=== PATIENT | male | born 1970 | race Caucasian/White ===

== ENCOUNTER 2017-11-23 16:42 | Emergency (ER) | payer MEDICAID ==
--- NOTE | 2017-11-23 16:52 | EDPHY ---
H & P Source: Patient Exam Limitations: No limitations - Medical/Surgical History Hx Asthma: No Hx Chronic Respiratory Disease: No Hx Diabetes: No Hx Cardiac Disease: No Hx Renal Disease: No Hx Cirrhosis: No Hx Alcoholism: No Hx HIV/AIDS: No Hx Splenectomy or Spleen Trauma: No Other PMH: Anxiety, RIGHT HIP ARTHRITIS, LEFT ACHILIES, BACK -DISKS, SLEEP PROBLEMS - Social History Smoking Status: Never smoked Time Seen by Provider: 11/23/17 16:47 HPI/ROS: CHIEF COMPLAINT: Suicidal thoughts, alcohol dependence HISTORY OF PRESENT ILLNESS: The patient presents the emergency department with complaints of suicidal thoughts in the setting of recent relapse from sobriety. The patient denies any specific ingestion. He reports that he is been intermittently using sertraline and trazodone. The patient has been receiving his care at [facility]. The patient denies any acute medical complaints. He has been having problems with his ex-. REVIEW OF SYSTEMS: A comprehensive 10 point review of systems is otherwise negative aside from elements mentioned in the history of present illness. (Juaquin Bravo) - Physical Exam Exam: General Appearance: Alert, no distress Eyes: Pupils equal and round no pallor or injection ENT, Mouth: Mucous membranes moist Respiratory: There are no retractions, lungs are clear to auscultation Cardiovascular: Regular rate and rhythm Gastrointestinal: Abdomen is soft and nontender, no masses, bowel sounds normal Neurological: A&O, normal motor function, normal sensory exam, normal cranial nerves Skin: Warm and dry, no rashes Musculoskeletal: Neck is supple nontender Extremities: symmetrical, full range of motion Psychiatric: Endorses symptoms of depression, suicidal thoughts (Juaquin Bravo) Constitutional: Initial Vital Signs Temperature (C) 37 C 11/23/17 17:17 Heart Rate 108 H 11/23/17 17:17 Respiratory Rate 18 11/23/17 17:17 Blood Pressure 165/85 H 11/23/17 17:17 O2 Sat (%) 97 11/23/17 17:17 O2 Delivery Mode Room Air Allergies/Adverse Reactions: No Known Allergies Allergy (Unverified 06/16/16 19:00) Home Medications: Medication Instructions Recorded Bp Meds 11/23/17 Sertraline HCl 11/23/17 traZODone 11/23/17 Medical Decision Making ED Course/Re-evaluation: The patient presents to the ED with suicidal thoughts in the setting of recent relapse. The patient denies a specific plan. He cannot contract for safety. The patient has been medically cleared for psychiatric evaluation which is pending as of shift change. The patient will be turned over to Dr. Martinez at shift change pending psychiatric disposition. (Juaquin Bravo) I assumed care of this patient at 8:30 p.m.. Breathalyzer was 0.62 at 9:40 p.m.. Will await sobriety prior to evaluation. At that time he was mildly agitated and tachycardic. He feels that he is starting to withdraw from alcohol. He was given a dose of Ativan 1 mg p.o.. His care will be transferred to at shift change, 11 PM. (Shantelle Martinez) 7:00 a.m.- The patient is currently being assessed by the mental health worker. The case will be signed out to the [facility] provider Dr. Benito pending their disposition. (Patti Zurita) I took over care of this patient at 7:00 a.m.. This patient is currently being evaluated by Behavioral Health. 7:40 a.m., the patient has been seen and evaluated by Behavioral Health. They feel that he is not suicidal and at this time does not meet criteria for psychiatric admission. They asked that we try to get him in for a medical detox for alcohol withdrawal. He has been seen and successfully treated through the [facility] detox program. We will work with behavioral Health to admit him there. The patient was given 1 mg of oral Ativan for alcohol withdrawal symptoms. This will be repeated as needed. 7:50 a.m., I evaluated the patient. He is sitting upright in his gurney. He appears common relaxed. He does have a resting tremor. 8:00 a.m., Lisa of [facility] will try to find placement for this patient at [facility] with a dual diagnosis of suicidal ideation and alcohol withdrawal. The patient will remain on his M1 hold. She will consult with the on-call psychiatrist. The patient will not be accepted for admission to [facility] for alcohol withdrawal alone secondary to his Medicaid status. 8:25 a.m., spoke with [facility] provider. The patient will be admitted to an inpatient setting. Destination unknown at this time. He will remain on his M1 hold. 11:30 a.m., the patient has been accepted for transfer to [facility]. I have filled out the appropriate transfer paperwork. His remaining emergency department course under my care has been uneventful. He was transferred in stable condition. (Renea Benito) Differential Diagnosis: Differential diagnosis considered includes depression, suicidal ideation, anxiety, alcohol dependence, alcohol abuse (Juaquin Bravo) - Data Points Laboratory Results: Laboratory Results 11/23/17 17:10 11/23/17 17:10 Medications Given: Discontinued Medications Lorazepam (Ativan) 1 mg PO EDNOW ONE Stop: 11/23/17 17:21 Last Admin: 11/23/17 17:30 Dose: 1 mg Lorazepam (Ativan) 1 mg PO EDNOW ONE Stop: 11/23/17 21:45 Last Admin: 11/23/17 21:45 Dose: 1 mg Lorazepam (Ativan) 1 mg PO EDNOW ONE Stop: 11/23/17 23:01 Last Admin: 11/23/17 23:00 Dose: 1 mg Lorazepam (Ativan) 1 mg PO EDNOW ONE Stop: 11/24/17 07:39 Last Admin: 11/24/17 07:50 Dose: 1 mg Departure - Departure Disposition: Other Psych, Not [place] Clinical Impression: Suicidal ideation, Alcoholism
[2017-11-23] MEDS ORDERED: LORazepam 1 MG TAB PO ONE ×3 (17:20→23:00)
[2017-11-23 17:27] LABS: PLATELET COUNT 360 10^3/uL (150-400)
[2017-11-23] MEDS ORDERED: LORazepam 1 MG TAB ONE (22:59)
[2017-11-24] MEDS ORDERED: LORazepam 1 MG TAB PO ONE ×2 (07:38→12:09)
[2017-11-24 11:54] VITALS: BP 137/99
== END 2017-11-24 12:30 ==
LOC: EDUNIT# → EDBD
DX: R45.851 Suicidal ideations (principal); F10.10 Alcohol abuse, uncomplicated
CPT/HCPCS: 80305; G0480